=== PATIENT | female | born 2000 | race Two or more races ===

== ENCOUNTER 2024-08-17 21:24 | Emergency (ER) | payer MEDICAID, SELFPAY ==
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
[2024-08-17 21:33] VITALS: BP 123/91; PULSE 103; RESP 16; TEMP 36.3; O2SAT 99; BMI 21.8
--- NOTE | 2024-08-17 21:42 | ED.GENADULT ---
HPI - General Adult General Chief complaint: Fall/Minor Trauma Stated complaint: Fell down stairs, back pain Time Seen by Provider: 08/17/24 21:41 History of Present Illness HPI narrative: fell down 5 steps in house 30 minutes ago. hit but and L arm. no LOC, no blood thinners . ambulatory on arrival, no obvious deformity to arm. 23-year-old woman presenting to the emergency department after hurting too much she says falling down 5 steps in her house. Striking her left arm and landing on her right flank area. Is able to ambulate. Does have pain. No neck pain. Does have some abdominal pain as noted in the right flank and then wrapping around. No numbness or tingling or weakness in the extremities. Does have some soreness in her left arm. She is concerned given physical nature of her work involving moderately heavy lifting and that this will be difficult. She anticipates working the next couple of days otherwise. Related Data Home Medications ?Medication ?Instructions ?Recorded ?Confirmed No Known Home Medications 08/17/24 08/17/24 Allergies Allergy/AdvReac Type Severity Reaction Status Date / Time acetaminophen (From Tylenol) Allergy Verified 08/17/24 22:46 Review of Systems Status of ROS: Reports: 6 or more systems reviewed and unremarkable except as noted in History and below [facility] Social History Smoking Status: Never smoker How often do you have a drink containing alcohol: never How often do you have six or more drinks on one occasion: Never AUDIT-C Alcohol total score: 0 Non-prescribed substance use: denies use Exam Narrative: Exam Narrative: Pleasant. Transitioning little gingerly. Breathing easily. Lungs appear to be clear. Heart in mildly elevated rate. Regular rhythm. Abdomen is soft and tender in the right mid abdomen and then into the right flank area. Did not really with midline back tenderness. No neck tenderness. Head appears to be atraumatic. She has sore about the left arm but moving all extremities without apparent difficulty. I do not see specific swellings/erythema. Const: Vital Signs, click to edit/add: Vital Signs - 24 hr 08/17/24 21:33 08/17/24 23:34 Temperature 97.3 F L Pulse Rate [Pulse Oximeter] 103 H 87 Respiratory Rate 16 16 Blood Pressure [Ri ght Upper Arm] 123/91 H 118/74 Pulse Oximetry 99 99 Oxygen Delivery Me thod Room Air Room Air Documenting provider has reviewed patient's vital signs: yes Course Vital Signs Vital signs: Initial Vital Signs Temperature 97.3 F L 08/17/24 21:33 Temperature Source Temporal Artery Scan 08/17/24 21:33 Pulse Rate 103 H 08/17/24 21:33 Respiratory Rate 16 08/17/24 21:33 Blood Pressure 123/91 H 08/17/24 21:33 Blood Pressure Mean 101 08/17/24 21:33 Blood Pressure Position Sitting 08/17/24 21:33 Pulse Oximetry 99 08/17/24 21:33 Oxygen Delivery Method Room Air 08/17/24 21:33 Vital Signs Temperature 97.3 F L 08/17/24 21:33 Pulse Rate 103 H 08/17/24 21:33 Respiratory Rate 16 08/17/24 21:33 Blood Pressure 123/91 H 08/17/24 21:33 Pulse Oximetry 99 08/17/24 21:33 Oxygen Delivery Method Room Air 08/17/24 21:33 Temperature 97.3 F L 08/17/24 21:33 Pulse Rate 87 08/17/24 23:34 Respiratory Rate 16 08/17/24 23:34 Blood Pressure 118/74 08/17/24 23:34 Pulse Oximetry 99 08/17/24 23:34 Oxygen Delivery Method Room Air 08/17/24 23:34 Medications Administered Medications: Discontinued Medications Generic Name Dose Route Start Last Admin Trade Name Freq PRN Reason Stop Dose Admin Ibuprofen 600 mg 08/17/24 21:50 08/17/24 22:13 Ibuprofen 200 Mg Tablet PO 08/17/24 21:51 600 mg ONCE ONE Administration Medical Decision Making [facility] Narrative Medical decision making narrative: Given degree of discomfort in the right flank/Greta spinal musculature I did propose screening with urinalysis as well as an x-ray of the lower right rib area. She would really appreciate an ice pack. Also given ibuprofen. X-ray of the right ribs independently reviewed by me appears to be negative any displaced fracture. Radiology over-read below Indication: Trauma. Technique: Three views of the right ribs. Comparison: None. Findings/Impression: No acute fracture appreciated. No cardiomegaly. Normal mediastinal silhouette. No confluent airspace opacity. No pleural effusion or pneumothorax. Dictated by Damaso Huynh MD @ 08/17/2024 10:23:28 PM Unfortunately urinalysis returns with blood present. She has not been noting hematuria or dysuria. Denies current menses. We with this positive urinalysis and right flank pain I think it is prudent to go ahead in image with IV contrasted CT scan of abdomen and pelvis. I did review these images independently. Appears to have rather distended bladder. I do not see any fluid collection or hematoma about the right kidney where she might be expected to have some injury. I did request for recheck with bladder scan which was negligible; she had urinated between CT scan and bladder scan. CT imaging of abdomen pelvis as below INDICATION: Fall down stairs with right flank pain and hematuria TECHNIQUE: CT Abdomen and pelvis with i.v. contrast. Coronal and sagittal reformats were obtained. CONTRAST: 61 mL Isovue 370 COMPARISON: None FINDINGS: Lower chest: Unremarkable. Liver: Unremarkable. Spleen: Unremarkable. Pancreas: Unremarkable. Gallbladder: Unremarkable. Kidney: Unremarkable. No kidney or ureteral stones or obstruction seen. Adrenal: Unremarkable. Bowel: The stomach, small bowel, and colon are unremarkable. The appendix is normal in appearance and size. Vascular: Unremarkable. Lymph: Unremarkable. Peritoneum: Unremarkable. No pneumoperitoneum is seen. A small amount of ascites is present and is likely physiologic in origin. There is a ring-enhancing lesion in the left ovary that measures 1.6 cm. This is most likely a corpus luteal cyst. Pelvis: Unremarkable. Soft tissue: Unremarkable. Bone: Unremarkable for age. IMPRESSION: 1. No CT correlate for the patient`s symptoms seen. Dictated by Thad Lo MD @ 08/17/2024 11:11:39 PM Has improved on reassessment with treatment as above. Given her work I think it will be difficult over the next couple of days. Work note written. See patient discharge plan for further discussion I would consider follow-up in 2 weeks with primary care provider/clinic to recheck urine. Stay well-hydrated. Can take up to 600 mg of ibuprofen or up to 850 mg of acetaminophen per dose. As discussed, I would ice the areas that hurt 2-3 times daily over the next few days. See handout for some stretches for your back as well it you might do over the next week or 2. Lab Data Lab results reviewed: Yes I reviewed the patient's lab results Labs: Lab Results 08/17/24 08/17/24 Range/Units 21:52 22:47 Sodium 136 (135-149) mmol/L Potassium 3.4 L (3.6-5.1) mmol/L Chloride 102 (96-114) mmol/L Carbon Dioxide 24 (20-32) mmol/L Anion Gap 10 (7-15) mEq/L BUN 26 H (5-24) mg/dL Creatinine 0.6 (0.5-1.5) mg/dL Estimated Creat Clear 122.69 Estimated GFR 131 ml/min Glucose 84 (60-115) mg/dL Calcium 9.1 (8.4-10.6) mg/dL Urine Color Yellow (Yellow) Urine Appearance Slightly Cloudy A (Clear) Urine pH 6.0 (5.0-8.5) Ur Specific [place] 1.015 (1.000-1.030) Urine Protein Trace A (Negative) Urine Glucose (UA) Negative (Negative) Urine Ketones Negative (Negative) Urine Blood 1+ A (Negative) Urine Nitrite Negative (Negative) Urine Bilirubin Negative (Negative) Urine Urobilinogen 0.2 (0.2-1.0) Ur Leukocyte Esterase Negative (Negative) Urine RBC 2-5 A (0-2) Urine WBC 0-2 (0-5) Ur Squamous Epith Cells Moderate A (None-Few) Amorphous Sediment Few A (None) Urine Bacteria Few A (None) Discharge Plan Discharge Clinical Impression: Contusion of flank, Hematuria Patient Disposition: Home w/ Parent or Adult Condition: Improved Additional Instructions: I would consider follow-up in 2 weeks with primary care provider/clinic to recheck urine. Stay well-hydrated. Can take up to 600 mg of ibuprofen or up to 850 mg of acetaminophen per dose. As discussed, I would ice the areas that hurt 2-3 times daily over the next few days. See handout for some stretches for your back as well it you might do over the next week or 2. Prescriptions: No Action No Known Home Medications Follow Up/Referrals: Erica Boss MD [Primary Care Provider] - Stand Alone Forms: [employer] Info Instructions
[2024-08-17 22:00] LABS: Appearance Urine Slightly Cloudy (Clear); Bilirubin Urine Negative (Negative); Blood Urine 1+ (Negative); Color Urine Yellow (Yellow); Glucose Urine Negative (Negative); Ketones Urine Negative (Negative); Leukocyte Esterase Urine Negative (Negative); Nitrite Urine Negative (Negative); Protein Urine Trace (Negative); Specific Gravity Urine 1.015 (1.000-1.030); Urobilinogen Urine 0.2 (0.2-1.0)
[2024-08-17 22:13] LABS: Amorphous Sediment Urine Few; Bacteria Urine Few; Squamous Epithelial Cell Urine Moderate (None-Few); WBC Urine 0-2 (0-5)
[2024-08-17] MEDS: IBUPROFEN 200 MG TABLET 600 MG PO (22:13)
[2024-08-17 23:02] LABS: Chloride* 102 mmol/L (96-114); Potassium* 3.4 mmol/L (3.6-5.1); Sodium* 136 mmol/L (135-149)
[2024-08-17 23:05] LABS: Anion Gap 10 mEq/L (7-15); Blood Urea Nitrogen* 26 mg/dL (5-24); Calcium* 9.1 mg/dL (8.4-10.6); Carbon Dioxide* 24 mmol/L (20-32); Creatinine* 0.6 mg/dL (0.5-1.5); Est. Creatinine Clearance* 122.69; Estimated Glomerular Filt Rate 131 ml/min; Glucose* 84 mg/dL (60-115)
[2024-08-17 23:34] VITALS: BP 118/74; PULSE 87; RESP 16; O2SAT 99
== END 2024-08-17 23:52 | disposition home or self-care (01) ==
PROVIDERS: Emergency Provider Family Medicine; PCP Family Medicine
DX: R10.9 Unspecified abdominal pain (principal); R31.9 Hematuria, unspecified; R30.0 Dysuria
CPT/HCPCS: 36415; 51798; 71100; 74177; 80048; 81001; 87086; 99284; 99285; A9270; Q9967